=== PATIENT | female | born 1985 | race African-American/Black ===

== ENCOUNTER 2020-10-22 15:36 | Observation (INO) | payer OTHER, SELFPAY ==
[2020-10-22] VITALS (8 sets, daily range): BP systolic 133–134; BP diastolic 91–93; PULSE 74–91; RESP 36; TEMP 36.9; O2SAT 97–99; BMI 31.1
--- NOTE | 2020-10-22 16:10 | OBADM ---
This patient, Suad Sher, admitted to the OB room 116 at 1536 for observation for shortness of breath. Patient/family oriented to hospital policies and general routines including ID bracelet, bed and alarms, visiting hours, pain management, procedures, bathroom and other care routines, personal items, smoking policy, room service/diet, and visiting hours. Patient/Family are encouraged to report perceived risks to care and to ask questions if they do not understand what they are told or what they should do.
--- NOTE | 2020-11-22 08:40 | PM.OBTRLD ---
OB - Triage/Final Diagnosis Visit Information Comments/Additional reasons for admission: I have assessed the risk for this patient, Suad Sher, and determined that she would benefit from observation care. Final Diagnosis (1) Shortness of breath: Code(s): R06.02 - Shortness of breath Status: Acute
== END 2020-10-22 16:34 | disposition other institution (70) ==
PROVIDERS: Admitting Provider Obstetrics & Gynecology; Visit Provider Obstetrics & Gynecology
DX: O26.893 Other specified pregnancy related conditions, third trimester (principal); R06.02 Shortness of breath; Z3A.34 34 weeks gestation of pregnancy
CPT/HCPCS: G0378; G0379

== ENCOUNTER 2020-10-22 16:39 | Emergency (ER) | payer OTHER, SELFPAY ==
--- NOTE | ~2020-10-22 | XR_ITS ---
EXAMINATION: XR chest 2V DATE: 10/22/2020 18:07 INDICATION: Shortness of breath and hypertension TECHNIQUE: PA and lateral views of the chest are obtained. COMPARISON: None available FINDINGS: There are minimal airspace opacities of the right lower lobe. There is no pleural effusion or pneumothorax. The cardiomediastinal silhouette is normal. The visualized bones and soft tissues ar e unremarkable. IMPRESSION: 1. Minimal airspace opacities of the right lower lobe, consistent with atelectasis versus pneumonia. Reviewed, dictated and finalized at location A. E REPAIRER IMPRESSION: 1. Minimal airspace opacities of the right lower lobe, consistent with atelecta sis versus pneumonia.
--- NOTE | 2020-10-22 17:16 | ECG_ITS ---
Measurements Intervals [place] Rate: 47 P: -9 WV: 132 QRS: 11 QRSD: 94 T: 31 QT: 372 QTc: 331 Interpretive Statements SINUS RHYTHM EARLY PRECORDIAL R/S TRANSITION LOW QRS VOLTAGE IN PRECORDIAL LEADS BASELINE ARTIFACT- I, II, AVR, V5 ABNORMAL ECG Electronically Signed On 10-22-2020 18:03:44 ICU SPECIALIST by Judd Mccarty D.O.
[2020-10-22 17:18] VITALS: BP 145/84; PULSE 79; RESP 18; TEMP 36.6; O2SAT 98
[2020-10-22 17:37] LABS: Basophils Percent Auto 0.4 % (0.2-1.2); Eosinophils Absolute Auto 0.2 K/mm3 (0-0.3); Eosinophils Percent Auto 2.4 % (0-4.4); Hematocrit 33.4 % (37.0-47.0); Hemoglobin 11.2 g/dL (12.0-15.0); Immature Granulocyte Absolute 0.11 K/mm3 (0.00-0.031); Immature Granulocyte Percent A 1.1 % (0-0.5); Lymphocytes Absolute Auto 2.27 K/mm3 (0.9-3.2); Mean Corpuscular HGB Conc 33.5 g/dl (32-36); Mean Corpuscular Hemoglobin 27.4 pg (26-34); Mean Corpuscular Volume 81.7 fl (80-100); Monocytes Absolute Auto 1.1 K/mm3 (0.1-0.6); Monocytes Percent Auto 10.7 % (2.6-8.5); Neutrophils Absolute Auto 6.2 K/mm3 (1.3-6.7); Neutrophils Percent Auto 62.4 % (45.5-73.1); Platelet Count Result 266 k/mm3 (150-375); Red Blood Count 4.09 M/mm3 (4.2-5.4); Red Cell Distribution Width 13.2 % (11.5-14.5); White Blood Count 9.9 K/mm3 (4.5-10.0)
[2020-10-22 17:49] LABS: Anion Gap 6 mmol/L (8-16); Blood Urea Nitrogen 4 mg/dL (7-17); Calcium 8.9 mg/dL (8.4-10.2); Carbon Dioxide 21 mmol/L (22-30); Chloride 108 mmol/L (98-107); Estimated CRCL calculation 169 ml/min; Estimated Glomerular Filt Rate > 60; Glucose 93 mg/dL (65-105); Potassium 3.5 mmol/L (3.4-5.0); Sodium 135 mmol/L (137-145)
[2020-10-22 19:13] VITALS: BP 139/90; PULSE 86; RESP 16; O2SAT 97
--- NOTE | 2020-10-22 19:38 | ED.GENADULT ---
HPI - General Adult General Chief complaint: Shortness of Breath/Dyspnea <Jesse Shelley PA-C - Last Filed: 10/22/20 21:11> Stated complaint: SOB <Jesse Shelley PA-C - Last Filed: 10/22/20 21:11> Time Seen by Provider: 10/22/20 19:22 <Jesse Shelley PA-C - Last Filed: 10/22/20 21:11> Source: patient and old records reviewed <Jesse Shelley PA-C - Last Filed: 10/22/20 21:11> Mode of arrival: ambulatory <Jesse Shelley PA-C - Last Filed: 10/22/20 21:11> Limitations: no limitations <Jesse Shelley PA-C - Last Filed: 10/22/20 21:11> History of Present Illness HPI narrative: Patient is a 35-year-old female who presents with shortness of breath for 2 weeks which has worsened over the last couple of days patient was seen by her farm equipment service technician today at the [facility] had evaluation of the baby was reassured and sent to the emergency department for her shortness of breath patient is followed by Dr. Benson patient denies any URI symptoms does work as a hospice nurse with potential sick contacts patient notes history of asthma but does not feel as though this is an asthma exacerbation patient denies tobacco abuse patient notes that the symptoms are even occurring at rest and today she has had 4 episodes of emesis which she has not had emesis in her patient is G2, P1. Patient after her evaluation in OB was sent over to the emergency department for further evaluation of her shortness of breath. Patient denies any history of DVT cardiopulmonary disease. Patient does not take any prescription medications. Patient denies vaginal bleeding discharge urinary or bowel habit change <YURI Bean Last Filed: 10/22/20 21:11> Related Data Home medications: Home Medications Medication Instructions Recorded Confirmed PNV cmb#95-ferrous fumarate-FA 1 tablet PO DAILY 10/22/20 10/22/20 [] aspirin 81 mg PO BID 10/22/20 10/22/20 cyclobenzaprine 10 mg PO TID PRN 10/22/20 10/22/20 ferrous sulfate 325 mg PO DAILY 10/22/20 10/22/20 folic acid 1 mg PO DAILY 10/22/20 10/22/20 <Jesse Shelley PA-C - Last Filed: 10/22/20 21:11> Allergies/adverse reactions: Allergies Allergy/AdvReac Type Severity Reaction Status Date / Time No Known Allergies Allergy Unverified 04/12/17 11:14 <Jesse Shelley PA-C - Last Filed: 10/22/20 21:11> Review of Systems Review of Systems: All systems reviewed & are unremarkable except as noted in HPI and below <Jesse Shelley PA-C - Last Filed: 10/22/20 21:11> [facility] Past Medical History Medical History: Medical History Asthma <Jesse Shelley PA-C - Last Filed: 10/22/20 21:11> Social History Social History: Social History (Updated 10/22/20 @ 19:40 by Jesse Shelley PA-C) Smoking status: Never smoker <Jesse Shleley PA-C - Last Filed: 10/22/20 21:11> Exam Narrative: Exam Narrative: GENERAL: Ill-appearing, well-nourished, and in no acute distress. HEAD: Normocephalic, atraumatic. EYES: PERRLA and EOMI. ENT: Nares clear, no rhinorrhea or epistaxis. Mucous membranes moist. NECK: Supple. No adenopathy or masses. No carotid bruits or JVD CHEST: Clear to auscultation. No respiratory distress. No wheezes rales or rhonchi HEART: Regular rate and rhythm. No murmur heard. Normal peripheral pulses. ABDOMEN: Soft, nontender, distended EXTREMITIES: Normal range of motion. No edema. SKIN: Warm, dry, no rash. NEURO: No focal deficits. Alert and oriented x3. PSYCH: Acutely anxious normal affect <Jesse Shelley PA-C - Last Filed: 10/22/20 21:11> Course Course Emergency Course: Patient was evaluated in the emergency department was very anxious upon arrival having emesis was medicated with antiemetics and fluids had marked improvement refused CTA of the chest however is feeling much better at this time is not hypoxic or havin
[2020-10-22 19:52] LABS: INR 0.9; Prothrombin Time 13.1 Seconds (11.1-14.7)
[2020-10-22 19:53] LABS: Partial Thromboplastin Time 30.8 SECONDS (22.3-36.8)
[2020-10-22] MEDS: DEXTROSE 5%/LACTATED RINGERS 1,000 ML 999 ML IV CONT (19:53)
[2020-10-22] MEDS: FAMOTIDINE 20 MG/2 ML VIAL IV PUSH (19:54)
[2020-10-22] MEDS: ONDANSETRON INJ 4 MG/2 ML VIAL IV PUSH (19:55)
[2020-10-22 20:00] LABS: NT Pro B Type Natriuretic Pept 22 PG/ML (5-100); Troponin I < 0.012 ng/mL (0.000-0.034)
[2020-10-22 21:14] VITALS: BP 138/81; PULSE 76; RESP 16; O2SAT 98
--- NOTE | 2020-10-22 21:15 | PC.NURSE ---
Patient walked in halls at this time. Patient maintained an 02 of 100% while walking in the halls. Patient denies SOB at this time.
[2020-10-23 17:38] LABS: SARS-CoV-2 RNA PCR Negative
== END 2020-10-22 21:20 | disposition home or self-care (01) ==
PROVIDERS: Emergency Medicine; Emergency Medicine Emergency Medical Services; Emergency Provider General Practice
DX: O26.893 Other specified pregnancy related conditions, third trimester (principal); R06.00 Dyspnea, unspecified; O21.2 Late vomiting of pregnancy; Z20.822 Contact with and (suspected) exposure to COVID-19; O99.513 Diseases of the respiratory system complicating pregnancy, third trimester; J45.909 Unspecified asthma, uncomplicated; Z79.82 Long term (current) use of aspirin; Z3A.34 34 weeks gestation of pregnancy; R94.31 Abnormal electrocardiogram [ECG] [EKG]; R91.8 Other nonspecific abnormal finding of lung field
CPT/HCPCS: 36415; 71046; 80048; 83880; 84484; 85025; 85610; 85730; 93005; 96361; 96374; 96375; 99284; C9803; G0378; G0379; J2405; J7121; U0003; U0005

== ENCOUNTER 2020-11-09 07:01 | Inpatient (IN) | payer OTHER, SELFPAY ==
[2020-11-09] VITALS (161 sets, daily range): BP systolic 102–232; BP diastolic 56–191; PULSE 68–183; RESP 18; TEMP 36.6–37.6; O2SAT 93–100; BMI 31.8
--- NOTE | 2020-11-09 07:01 | LDADM ---
This patient, Suad Sher, was admitted to Labor/Delivery/Recovery 105 on 11/09/20 at 07:01. Plans for labor, pain management and were discussed with patient. Patient/family oriented to hospital policies and general routines including ID bracelet, bed and alarms, visiting hours, pain management, procedures, bathroom and other care routines, personal items, smoking policy, room service/diet and guest tray routines, security routines, and visiting hours. Patient/Family are encouraged to report perceived risks to care and to ask questions if they do not understand what they are told or what they should do. See OBIX for further documentation.
[2020-11-09 07:59] LABS: Basophils Percent Auto 0.5 % (0.2-1.2); Eosinophils Absolute Auto 0.2 K/mm3 (0-0.3); Eosinophils Percent Auto 2.3 % (0-4.4); Hematocrit 34.1 % (37.0-47.0); Hemoglobin 11.5 g/dL (12.0-15.0); Immature Granulocyte Absolute 0.05 K/mm3 (0.00-0.031); Immature Granulocyte Percent A 0.7 % (0-0.5); Lymphocytes Absolute Auto 1.49 K/mm3 (0.9-3.2); Lymphocytes Percent Auto 19.8 % (18.3-44.2); Mean Corpuscular HGB Conc 33.7 g/dl (32-36); Mean Corpuscular Hemoglobin 27.3 pg (26-34); Mean Platelet Volume 10.2 fl (7.4-10.4); Monocytes Absolute Auto 0.7 K/mm3 (0.1-0.6); Monocytes Percent Auto 8.9 % (2.6-8.5); Neutrophils Absolute Auto 5.1 K/mm3 (1.3-6.7); Neutrophils Percent Auto 67.8 % (45.5-73.1); Platelet Count Result 254 k/mm3 (150-375); Red Blood Count 4.21 M/mm3 (4.2-5.4); Red Cell Distribution Width 13.5 % (11.5-14.5); White Blood Count 7.5 K/mm3 (4.5-10.0)
[2020-11-09] MEDS: LACTATED RINGERS 1,000 ML 125 ML IV CONT ×2 (08:00→17:38)
[2020-11-09] MEDS: OXYTOCIN 30 UNITS/NS 500 ML 30 UNITS/500 ML BAG IV CONT (08:00)
--- NOTE | 2020-11-09 08:05 | P.HPUP_ITS ---
History and Physical Update Update Date/Time: 11/09/20 08:05 multiparous female at 37 weeks with blood pressure c oncerns. 3-4 cm/50%/-2 artificial rupture membranes performed. Clear fluid. History and Physical has been reviewed, including an updated exam of the patient. There are NO changes in the patient's condition. Risks, benefits, and alternatives have been discussed and questions answered. Patient agrees to proceed with procedure.
[2020-11-09 08:11] LABS: Uric Acid 3.3 mg/dL (2.5-7.5)
[2020-11-09 08:24] LABS: Amphetamine Screen Urine Negative (Negative); Barbiturate Screen Urine Negative (Negative); Benzodiazepines Screen Urine Negative (Negative); Cannabinoid Screen Urine Negative (Negative); Cocaine Screen Urine Negative (Negative); Methadone Screen Urine Negative (Negative); Opiate Screen Urine Negative (Negative); Phencyclidine Screen Urine Negative (Negative)
[2020-11-09 08:45] LABS: Alanine Aminotransferase 15 U/L (4-35); Albumin Level 3.3 g/dL (3.5-5.1); Alkaline Phosphatase 142 U/L (38-126); Anion Gap 7 mmol/L (8-16); Aspartate Amino Transferase 27 U/L (14-36); Bilirubin,Total 0.2 mg/dL (0.2-1.3); Blood Urea Nitrogen 3 mg/dL (7-17); Calcium 8.7 mg/dL (8.4-10.2); Carbon Dioxide 20 mmol/L (22-30); Chloride 109 mmol/L (98-107); Estimated CRCL calculation 170 ml/min; Estimated Glomerular Filt Rate > 60; Glucose 127 mg/dL (65-105); Potassium 3.5 mmol/L (3.4-5.0); Sodium 136 mmol/L (137-145)
[2020-11-09 09:12] LABS: Rapid Plasma Reagin Non-Reactive (NonReactive)
[2020-11-09] MEDS: fentaNYL CITRATE INJ (*CRX) 100 MCG/2 ML VIAL IV PUSH (09:55)
[2020-11-09] MEDS: ONDANSETRON INJ 4 MG/2 ML VIAL IV PUSH (17:37)
--- NOTE | 2020-11-09 18:50 | PM.OBPRVD ---
OB - Delivery Note Procedure Delivery date: 11/09/20 events: Induced HTN Intrapartal events: None Induction method: per pitocin protocol Delivery monitor: external FHT, external uterine and internal FHT Route of delivery: Episiotomy description: None Laceration Description: None Anesthesia type: Epidural Baby Date of : 11/09/20 Time of : 18:38 Weeks of gestation at delivery: 37 Infant gender: Male Weight (pounds): 7 Weight (ounces): 8 presentation: vertex position: Right Occiput Anterior Placenta delivery description: Spontaneous score one minute: 8 score five minutes: 9
[2020-11-09] MEDS: OXYTOCIN 30 UNITS/NS 500 ML 30 UNITS/500 ML BAG 125 UNITS IV CONT (19:17)
[2020-11-09] MEDS: WITCH HAZEL 40 PADS 1 PAD TOPICAL (20:52)
[2020-11-09] MEDS: BENZOCAINE 20% AER SPR (*SP) 56 GM CAN 1 SPRAY TOPICAL (20:52)
[2020-11-10 05:15] LABS: Hematocrit 30.8 % (37.0-47.0); Hemoglobin 10.4 g/dL (12.0-15.0)
--- NOTE | 2020-11-10 08:20 | PM.OBPNVD ---
OB - PN: Subj Subjective Date/time seen: 11/10/20 08:20 Patient comments: no complaints baby status: doing well OB - PN: Obj Data Labs CBC & Chem 7: 11/10/20 04:43 11/09/20 07:46 Labs: Laboratory Results - last 24 hr 11/09/20 11/09/20 11/09/20 07:46 07:46 07:46 Hgb Hct Sodium Potassium Chloride Carbon Dioxide Anion Gap BUN Creatinine Estim Creat Clear Calc Estimated GFR Glucose Calcium Total Bilirubin AST ALT Alkaline Phosphatase Total Protein Albumin Urine Opiates Screen Negative Urine Methadone Screen Negative Ur Barbiturates Screen Negative Ur Phencyclidine Scrn Negative Ur Amphetamine Screen Negative U Benzodiazepines Scrn Negative Urine Cocaine Screen Negative U Cannabinoids Screen Negative RPR Non-reactive Blood Type A Positive Antibody Screen Negative 11/09/20 11/10/20 07:46 04:43 Hgb 10.4 L Hct 30.8 L Sodium 136 L Potassium 3.5 Chloride 109 H Carbon Dioxide 20 L Anion Gap 7 L BUN 3 L Creatinine 0.50 L Estim Creat Clear Calc 170 Estimated GFR > 60 Glucose 127 H Calcium 8.7 Total Bilirubin 0.2 AST 27 ALT 15 Alkaline Phosphatase 142 H Total Protein 6.0 L Albumin 3.3 L Urine Opiates Screen Urine Methadone Screen Ur Barbiturates Screen Ur Phencyclidine Scrn Ur Amphetamine Screen U Benzodiazepines Scrn Urine Cocaine Screen U Cannabinoids Screen RPR Blood Type Antibody Screen OB - PN A/P Plan day: 1 Plan: routine care Time Spent With Patient Time: Total time spent is greater than 50% in coordination of care (as documented) at patient's floor/unit and/or counseling patient: Time with patient: less than 15 minutes Review of Systems Review of Systems: All systems reviewed & are unremarkable except as noted in HPI and below Exam Narrative: Exam Narrative: Fundus firm and vaginal flow controlled. No lower ext redness, warmth, or edema. Negative homans. Denies h/a, v/d or e/p. Reflexes normal. Const: General: comfortable Chest: Breast/axilla inspection: normal inspection of the breasts Resp: Effort & Inspection: normal respiratory effort Cardio: Rate: regular rate GI: GI Palp: Yes Soft to palpation Psych: Appearance: grossly normal Affect: normal affect Attitude: cooperative Thought content: Yes Normal thought content present Judgement: Good judgement present (Psych)
[2020-11-10 09:10] VITALS: BP 127/80; PULSE 86; RESP 18; TEMP 37.1; O2SAT 97
--- NOTE | 2020-11-10 09:39 | WPDANLDPN2 ---
Anes-Prog Note L&D Date/Time: 11/10/20 09:39 Comfortable throughout: labor and delivery Neuraxial method: epidural Epidural/Spinal procedure site: clean & non-tender Neuro status: Neuro function grossly intact. Cardiovascular status: normal Respiratory status: normal Airway patency: baseline Mental status: baseline Post-Op hydration status: normal Vital Signs: Last Vital Signs Temp 37.6 C H 11/09/20 21:25 Pulse 90 11/09/20 21:25 Resp 18 11/09/20 21:25 BP 148/84 H 11/09/20 21:25 Pulse Ox 100 11/09/20 21:25 Pain score (VAS): 0 I/O: Intake & Output 11/09/20 11/10/20 11/10/20 23:59 07:59 15:59 Intake Total 2500 Output Total 171 Balance 2329 Post-procedural complaints: none Patient feedback: Patient satisfied with anesthetic care.
[2020-11-10] MEDS: IBUPROFEN 600 MG TABLET PO (15:49)
[2020-11-10 20:10] VITALS: BP 132/93; PULSE 67; RESP 16; TEMP 36.6; O2SAT 100
[2020-11-11] MEDS: IBUPROFEN 600 MG TABLET PO (05:11)
[2020-11-11] MEDS: DOCUSATE SODIUM 100 MG CAPSULE PO (05:15)
--- NOTE | 2020-11-11 07:26 | PM.OBPNVD ---
OB - PN: Subj Subjective Date/time seen: 11/11/20 07:26 Patient comments: no complaints baby status: doing well OB - PN: Obj Data Labs CBC & Chem 7: 11/10/20 04:43 11/09/20 07:46 OB - PN A/P Plan day: 2 Plan: routine care and discharge home Time Spent With Patient Time: Total time spent is greater than 50% in coordination of care (as documented) at patient's floor/unit and/or counseling patient: Review of Systems Review of Systems: All systems reviewed & are unremarkable except as noted in HPI and below Exam Const: General: cooperative Orientation/consciousness: oriented to person and patient oriented x3 Psych: Attitude: cooperative Thought content: Yes Normal thought content present Insight: Good insight present (Psych) Judgement: Good judgement present (Psych)
--- NOTE | 2020-11-11 08:05 | P.PCN_ITS ---
OB [place] - Circumcision Consent: Potential risks, benefits, and alternatives have been discussed and questions answered. Family agrees to proceed with circumcision. Preoperative Diagnosis: Normal Foreskin. Postoperative Diagnosis: Normal Foreskin. Date of Circumcision: 11/11/20 Time of Circumcision: 07:45 Type of Circumcision: GOMCO with 1.1 Anesthesia: Ring Block Foreskin: The foreskin was examined and found to be grossly normal. Estimated Blood Loss: None
--- NOTE | 2020-11-11 08:09 | PM.OBDSVD ---
DS: Admitting Diagnosis Admitting Diagnosis Admitting Diagnosis: [facility] OB - DS: Summary OB Procedures : None OB Procedures Intrapartum: Spontaneous Vag Delivery OB Procedures: : None Time Spent with Patient Time attestation: Total time spent providing and/or coordinating discharge services: DS: Data Data Completed and Pending Pending studies at discharge: Pending at discharge 11/09/20 19:14 Surgical [PTH] Routine Discharge Plan Discharge Attending physician on discharge: Ernst Benson Discharging Clinician: Pat Lovell Patient Disposition: Home, Self-Care Activity: pelvic rest Diet: regular Patient Instructions: Antibiotic Form Stand Alone Forms: General Discharge Information Follow-up/Referrals: Marj Castillo CNM [Certified Nurse Assembler Tester] - 1 Week (1 week bp check, 4 week pp) Discharge Medications: No Action cyclobenzaprine 10 mg Tablet 10 mg PO TID PRN (Reason: Muscle soreness) RF: 0 ferrous sulfate 325 mg (65 mg iron) Tablet 325 mg PO DAILY RF: 0 folic acid 1 mg Tablet 1 mg PO DAILY RF: 0 aspirin 81 mg Tablet 81 mg PO BID RF: 0 PNV cmb#95-ferrous fumarate-FA [] 28 mg iron- 800 mcg Tablet 1 tablet PO DAILY RF: 0 Date of admission: 11/09/20 07:01 Primary Care Provider: PHYSICIAN,SEARCH MARKETING SPECIALIST Admitting Provider: Ernst Benson Attending physician on admission: Ernst Benson Condition: Stable
[2020-11-11 08:25] VITALS: BP 145/94; PULSE 62; RESP 16; TEMP 36.6; O2SAT 100
[2020-11-12 08:39] VITALS: BP 133/86; PULSE 61; RESP 20; TEMP 36.7; O2SAT 100
== END 2020-11-11 13:25 | disposition home or self-care (01) | DRG 560 ==
LOC: ANHLDR 07:11 → ANHOB2 21:45
PROVIDERS: Advanced Practice Midwife; Admitting Provider Obstetrics & Gynecology; Visit Provider Obstetrics & Gynecology
DX: O13.4 Gestational [pregnancy-induced] hypertension without significant proteinuria, complicating childbirth (principal); Z37.0 Single live birth; Z3A.37 37 weeks gestation of pregnancy; O36.8330 Maternal care for abnormalities of the fetal heart rate or rhythm, third trimester, not applicable or unspecified; O98.32 Other infections with a predominantly sexual mode of transmission complicating childbirth; B00.9 Herpesviral infection, unspecified; O99.52 Diseases of the respiratory system complicating childbirth; J45.909 Unspecified asthma, uncomplicated
CPT/HCPCS: 36415; 80053; 80307; 84550; 85014; 85018; 85025; 86592; 86850; 86900; 86901; 88307; A9270; J2405; J2590; J2795; J3010; J7120

== ENCOUNTER 2020-11-16 10:40 | Outpatient (CLI) | payer OTHER, SELFPAY ==
[2020-11-16 11:10] VITALS: BP 124/86; PULSE 74; TEMP 36.8
[2020-11-16 11:13] VITALS: RESP 18
[2020-11-16 11:15] VITALS: BP 133/87; PULSE 63
[2020-11-16 11:30] VITALS: BP 134/90; PULSE 61
[2020-11-16 11:31] LABS: Basophils Absolute Auto 0.1 K/mm3 (0.0-0.1); Basophils Percent Auto 0.8 % (0.2-1.2); Eosinophils Absolute Auto 0.2 K/mm3 (0-0.3); Eosinophils Percent Auto 2.8 % (0-4.4); Hematocrit 36.2 % (37.0-47.0); Hemoglobin 12.4 g/dL (12.0-15.0); Immature Granulocyte Absolute 0.06 K/mm3 (0.00-0.031); Immature Granulocyte Percent A 0.8 % (0-0.5); Lymphocytes Absolute Auto 1.81 K/mm3 (0.9-3.2); Lymphocytes Percent Auto 24.9 % (18.3-44.2); Mean Corpuscular HGB Conc 34.3 g/dl (32-36); Mean Corpuscular Hemoglobin 27.3 pg (26-34); Mean Corpuscular Volume 79.7 fl (80-100); Mean Platelet Volume 9.4 fl (7.4-10.4); Monocytes Absolute Auto 0.7 K/mm3 (0.1-0.6); Monocytes Percent Auto 9.5 % (2.6-8.5); Neutrophils Absolute Auto 4.5 K/mm3 (1.3-6.7); Neutrophils Percent Auto 61.2 % (45.5-73.1); Platelet Count Result 351 k/mm3 (150-375); Red Blood Count 4.54 M/mm3 (4.2-5.4); Red Cell Distribution Width 12.8 % (11.5-14.5); White Blood Count 7.3 K/mm3 (4.5-10.0)
[2020-11-16 11:36] LABS: Add Urine Microscopic? YES; Appearance Urine Cloudy (Clear); Bacteria Urine Trace /hpf; Bilirubin Urine Negative (Negative); Blood Urine 3+ (Negative); Color Urine Yellow (Yellow); Glucose Urine UA Negative (Negative); Ketones Urine Negative (Negative); Leukocyte Esterase Ur 3+ LEU/UL (NEGATIVE); Mucus Urine Rare /lpf; Nitrate Urine Negative (Negative); Protein Urine 1+ mg/dL (Negative); Specific Grav Ur 1.014 (1.001-1.035); Squamous Epithelial Cell Urine Many /hpf (Few); Urobilinogen Urine Negative mg/dL (<2.0); WBC Urine 31-50 /hpf (0-3)
[2020-11-16 11:42] LABS: Alanine Aminotransferase 14 U/L (4-35); Albumin Level 3.5 g/dL (3.5-5.1); Alkaline Phosphatase 102 U/L (38-126); Anion Gap 4 mmol/L (8-16); Aspartate Amino Transferase 24 U/L (14-36); Bilirubin,Total 0.3 mg/dL (0.2-1.3); Blood Urea Nitrogen 11 mg/dL (7-17); Calcium 9.5 mg/dL (8.4-10.2); Carbon Dioxide 25 mmol/L (22-30); Chloride 109 mmol/L (98-107); Estimated Glomerular Filt Rate > 60; Glucose 85 mg/dL (65-105); Sodium 138 mmol/L (137-145); Uric Acid 4.6 mg/dL (2.5-7.5)
--- NOTE | 2020-11-16 11:53 | PC.NURSE ---
Updated Chinyere Castillo CNM on patient lab results and vital signs. Patient may be sent home and should follow-up as scheduled in the office next week. Pre-eclampsia precautions given.
[2020-11-16 11:54] LABS: Creatinine Urine 78.5 mg/dL; Total Protein Urine Random 16 mg/dL
--- NOTE | 2020-11-16 11:58 | PC.NURSE ---
Pre-eclampsia precautions reviewed with patient. Patient provided a handout with precautions and symptoms listed. Patient states understanding and denies questions. Patient instructed to follow-up in Dr. Zimmerman office as scheduled on 11/23/2020.
== END 2020-11-16 12:01 | disposition home or self-care (01) ==
LOC: ANHOBOP 10:48 → ANHOBPP 11-23 07:56
PROVIDERS: Advanced Practice Midwife; PCP Obstetrics & Gynecology; Visit Provider Obstetrics & Gynecology
DX: R03.0 Elevated blood-pressure reading, without diagnosis of hypertension (principal)
CPT/HCPCS: 36415; 80053; 81001; 82570; 84156; 84550; 85025; 99199